=== PATIENT | female | born 1990 | race Caucasian/White ===

== ENCOUNTER 2018-04-24 12:34 | Emergency (ER) | payer OTHER ==
[2018-04-24 12:46] VITALS: BP 140/84
--- NOTE | 2018-04-24 13:03 | XRAY Report ---
Reason: left wrist pain s/p fall Procedure Date: 04/24/2018 Accession Number: [id number] / [id number] Procedure: XR - Wrist 4 View LT CPT Code: FULL RESULT: EXAM: LEFT WRIST RADIOGRAPHY EXAM DATE: 04/24/2018 12:52 PM. CLINICAL HISTORY: Left wrist pain s/p fall. COMPARISON: None. TECHNIQUE: 3 views. FINDINGS: Bones: Normal. No fractures or bone lesions. Scaphoid appears intact on dedicated view. Joints: Normal. No subluxations. Soft Tissues: Normal. No soft tissue swelling. IMPRESSION: Normal wrist radiography. [facility]
[2018-04-24] MEDS ORDERED: IBUPROFEN 400 MG TABLET PO STA (14:08)
--- NOTE | 2018-04-24 14:16 | ED Physician Documentation ---
History of Present Illness - Stated complaint Stated Complaint: LEFT WRIST INJ - Chief complaint Chief Complaint: Ext Problem - Additonal information Additional information: hx from pt 27 y/o f denies preg slip and fall a few days ago L wrist pain no deformity Review of Systems Musculoskeletal: reports: Extremity pain PD PAST MEDICAL HISTORY - Past Medical History Past Medical History: No - Past Surgical History Past Surgical History: No - Allergies Allergies/Adverse Reactions: Allergies Allergy/AdvReac Type Severity Reaction Status Date / Time ceftriaxone [From Rocephin] Allergy Unknown Verified 04/24/18 12:42 - Social History Does the pt smoke?: No Smoking Status: Never smoker - POLST Patient has POLST: No PD ED PE NORMAL - Vitals Vital signs reviewed: Yes - Cardiac Cardiac: RRR - Respiratory Respiratory: No respiratory distress, Clear bilaterally - Extremities Extremities: Other (L wrist TTP to ulnar styloid and less to to prox 5th MC, abrasion to elbow but prox radius and ulna NT) Results - Vitals Vitals: Vital Signs - 24 hr 04/24/18 12:38 Temperature 36.3 C L Heart Rate 88 Respiratory 16 Rate Blood Pressure 140/84 H O2 Saturation 98 Oxygen O2 Source Room air Departure - Departure Disposition: 01 Home, Self Care Clinical Impression: Left wrist sprain Qualifiers: Encounter type: initial encounter Qualified Code(s): S63.502A - Unspecified sprain of left wrist, initial encounter Condition: Good Instructions: ED Sprain Wrist, ED Splint Care Velcro Comments: The xray is fine - there is no fracture Wear the splint for support Ice and elevation as needed for swelling Motrin for the pain If still painful in 2 weeks, please see your PMD - occasionally small cracks cannot be seen on initial xray but repeat xrays a few weeks later will show the injury
== END 2018-04-24 14:55 | disposition home or self-care (01) ==
LOC: ED 12:34
DX: S63.502A Unspecified sprain of left wrist, initial encounter (principal); W17.89XA Other fall from one level to another, initial encounter
CPT/HCPCS: 73110; 99282; 99283; A9270

== ENCOUNTER 2018-08-22 19:28 | Emergency (ER) | payer OTHER ==
--- NOTE | 2018-08-22 19:56 | ED Physician Documentation ---
PD HPI URI - Stated complaint Stated Complaint: FLU LIKE SX - Chief complaint Chief Complaint: Resp - History obtained from History obtained from: Patient - History of Present Illness Timing - onset: Yesterday Timing duration: Days (06/14) Timing details: Abrupt onset, Still present Associated symptoms: Fever, Sore throat, Dry cough, NVD (some nausea, but only mild soft stool.), Other (general body aches and fatigue) Contributing factors: No: Sick contact, Travel Worsened by: Activity Similar symptoms before: Has not had sx before Recently seen: Not recently seen Review of Systems Constitutional: reports: Fever, Chills, Myalgias, Fatigue Nose: reports: Congestion Throat: reports: Sore throat Respiratory: reports: Cough GI: reports: Nausea. denies: Vomiting, Diarrhea Skin: denies: Rash, Lesions Neurologic: reports: Headache. denies: Altered mental status PD PAST MEDICAL HISTORY - Past Medical History Cardiovascular: None Respiratory: None Neuro: None Endocrine/Autoimmune: None - Past Surgical History Past Surgical History: No - Present Medications Home Medications: Ambulatory Orders Medication Instructions Recorded Confirmed Dexamethasone [Decadron] 4 mg PO DAILY #5 tablet 08/22/18 Hydrocodone/Acetaminophen [Lacey 1 each PO Q6H PRN #15 tablet 08/22/18 5-325 Tablet] Ondansetron Odt [Zofran] 4 mg TL Q6H PRN #10 tablet 08/22/18 Oseltamivir [Tamiflu] 75 mg PO BID #10 capsule 08/22/18 - Allergies Allergies/Adverse Reactions: Allergies Allergy/AdvReac Type Severity Reaction Status Date / Time ceftriaxone [From Rocephin] Allergy Unknown Verified 08/22/18 19:45 - Social History Does the pt smoke?: No Smoking Status: Never smoker - POLST Patient has POLST: No PD ED PE NORMAL - Vitals Vital signs reviewed: Yes - General General: Alert and oriented X 3, Well developed/nourished - HEENT HEENT: Ears normal, Pharynx benign - Neck Neck: Supple, no meningeal sign, No adenopathy - Cardiac Cardiac: RRR (mild tachycardic), No murmur - Respiratory Respiratory: Clear bilaterally - Abdomen Abdomen: Soft, Non tender - Derm Derm: Normal color, Warm and dry - Extremities Extremities: No tenderness to palpate, Normal ROM s pain, No edema, No calf tenderness / cord - Neuro Neuro: Alert and oriented X 3, No motor deficit, Normal speech Results - Vitals Vitals: Vital Signs - 24 hr 08/22/18 08/22/18 19:43 20:37 Temperature 37.2 C 37.8 C H Heart Rate 106 H 97 Respiratory 18 18 Rate Blood Pressure 139/103 H 136/91 H O2 Saturation 97 96 Oxygen O2 Source Room air - Labs Labs: Laboratory Tests 08/22/18 19:48 Influenza A (Rapid) POSITIVE H Influenza B (Rapid) Negative Departure - Departure Disposition: Home, Self Care Clinical Impression: Influenza A Condition: Stable Record reviewed to determine appropriate education?: Yes Instructions: ED Flu Prescriptions: Dexamethasone [Decadron] 4 mg PO DAILY #5 tablet Hydrocodone/Acetaminophen [Lacey 5-325 Tablet] 1 each PO Q6H PRN #15 tablet PRN Reason: Pain Ondansetron Odt [Zofran] 4 mg TL Q6H PRN #10 tablet PRN Reason: Nausea / Vomiting Oseltamivir [Tamiflu] 75 mg PO BID #10 capsule Comments: Stay well-hydrated. Tylenol or ibuprofen for fevers and chills. Use ondansetron if needed for nausea. Add hydrocodone if needed for headaches and pains. Decadron steroid anti-inflammatory for 5 days will help a lot less symptoms. You do have the flu so the Tamiflu can help decrease symptoms a little bit. If you find you are getting nausea cramps diarrhea or feel worse after taking it then you can stop the Tamiflu if the side effects are worse than the benefit. Forms: Activity restrictions Discharge Date/Time: 08/22/18 20:45
[2018-08-22] MEDS ORDERED: ONDANSETRON ODT 4 MG TABLET TL STA (20:15)
[2018-08-22] MEDS ORDERED: DEXAMETHASONE 10 MG/ML VIAL PO STA (20:15)
[2018-08-22] MEDS ORDERED: OSELTAMIVIR 75 MG CAPSULE PO STA (20:15)
[2018-08-22] MEDS ORDERED: HYDROcod/ACETAM 5/325 MG TABLET PO STA (20:15)
[2018-08-22 20:38] VITALS: BP 136/91
[2018-08-22] MEDS ORDERED: CHERRY SYRUP 10 ML UDC PO ONE (20:43)
== END 2018-08-22 20:45 | disposition home or self-care (01) ==
LOC: ED 19:28
DX: J10.1 Influenza due to other identified influenza virus with other respiratory manifestations (principal)
CPT/HCPCS: 87275; 87276; 99283; A9270; Q0162